=== PATIENT | male | born 1990 | race Caucasian/White ===

== ENCOUNTER 2020-12-21 10:51 | Outpatient (CLI) | payer SELFPAY ==
--- NOTE | 2020-12-21 | XR_ITS ---
WS: [id number] TOE LEFT TECHNIQUE: 3 views of the left great toe CLINICAL INFORMATION: LACERATION OF GREAT TOE, LEFT COMPARISON: None. FINDINGS: Comminuted fracture involving the second proximal phalanx with comminuted fracture fragments due to r ecent injury. Soft tissue edema. Normal first metatarsal. XR/XR toe LT min 2V [id number] IMPRESSION: Comminuted fracture involving the second proximal phalanx with comminuted fract ure fragments due to recent laceration
== END 2020-12-21 10:52 | disposition home or self-care (01) ==
LOC: RADOUTREAD 11:41
PROVIDERS: PCP Family Medicine; Visit Provider Physician Assistant
DX: S91.112A Laceration without foreign body of left great toe without damage to nail, initial encounter (principal); Z11.52 Encounter for screening for COVID-19; Z20.822 Contact with and (suspected) exposure to COVID-19; S92.912A Unspecified fracture of left toe(s), initial encounter for closed fracture; X58.XXXA Exposure to other specified factors, initial encounter
CPT/HCPCS: 87635

== ENCOUNTER 2020-12-22 10:57 | Day surgery (SDC) | payer SELFPAY ==
[2020-12-21 16:45] VITALS: BMI 33.7
[2020-12-22] MEDS: sodium chloride 0.9% 1,000 ML 30 ML IV (11:30)
--- NOTE | 2020-12-22 11:49 | P.ANESASSM_ITS ---
Pre-Anesthetic Assessment Pre-Anesthetic Assessment: Height/Weight: Height 1.78 m Weight 106.594 kg Preop Diagnosis: Open fracture left great toe with tendon rupture Proposed Procedure: Operation Date: 12/22/20 12:20 Proposed Procedures p 17726/46210Xbalz repair and extensor tendon repair left foot W29.3XXA S92.91 9B(Left) - Slava Marquez DPM Familial anesthetic complications: None Was Beta Chris taken within 24 hours: N/A Was Clonidine taken within 24 hours: N/A Last intake: Intake Last Liquid Date 12/21/20 Last Liquid Time 22:30 Last Solid Date 12/21/20 Last Solid Time 22:30 Social: Social History: No alcohol and No tobacco Exam: Pre-Anes Outpt Exam: alert, oriented x 3, clear to auscultation bilaterally and regular rate & rhythm Airway: Cervical ROM: WNL MP: 4 Dentition: Chipped Anesthetic Plan: ASA status: 1 Anesthesia: General Risk of > 500 ml blood loss (7ml/kg in children): No Data Anesthesia Cardiac Studies: No Data to Display
--- NOTE | 2020-12-22 12:06 | W.PM.OPSUD ---
Surgery/Procedure H&P Update DATE OF PROCEDURE: December 22, 2020 DATE H&P PERFORMED: 12/21/20 H&P UPDATE INFORMATION: I have reviewed H&P completed within last 30 days, I have examined patient prior to procedure, No changes to prior documentation and H&P is in [facility] EMR on date indicated PREOP DIAGNOSIS: Open fracture left great toe with tendon rupture PLANNED PROCEDURE: Operation Date: 12/22/20 12:20 Proposed Procedures p 15309/10266Pcfcc repair and extensor tendon repair left foot W29.3XXA S92.919B(Left) - Slava Marquez DPM
[2020-12-22] MEDS: lidocaine 1% INJ 20 mL INJECTION (12:24)
[2020-12-22 13:09] VITALS: BP 119/65; PULSE 78; RESP 16; TEMP 36.2; O2SAT 96
--- NOTE | 2020-12-22 13:13 | P.OP_ITS ---
Operative Report Date of procedure: December 22, 2020 Pre-op Diagnosis: Open fracture left great toe with tendon rupture Post-op diagnosis: same Post-op Findings: Same Procedure Done: Wound repair and extensor tendon repair left foot CPT code 46098 and 41697 Implants: 4-0 Vicryl, 4-0 nylon, 3-0 nylon Pathology: none sent Surgeon: Slava Marquez D.P.M. Marine Gear Keeper: INDY Anesthesia: MAC Estimated blood loss: Less than 10 mL Tourniquet time: 37 minutes IV fluids: None Urine output: None Complications: None Findings: Comminuted nondisplaced fracture of the proximal phalanx left great toe and completely severed extensor hallucis longus tendon. 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 Toe was flushed with saline, dressed with Betadine and he was placed on clindamycin and ciprofloxacin and also prescribed [place]. Presents n.p.o. since midnight in preparation for complex wound repair and extensor tendon repair. Risks include pain, bleeding, numbness, infection, tendon adhesions, tendon failure, lack of range of motion, lack of strength and power mobility of the left great toe. Need for further surgical intervention. Informed consent signed by patient and myself, initialed his left foot. All questions answered to patient satisfaction he wishes to proceed. No guarantees written, expressed or implied. He is accompanied by his mother. Procedure: Out sedation the patient was brought to the operating room and placed on the operating table in supine position. A timeout was performed. Anesthesia was then administered by the anesthesia service. Local anesthesia injected by myself consisting of 0.5 Marcaine plain and 1% lidocaine plain in a one-to-one mixture. Total of 20 cc and a left [place] block fashion. Well-padded pneumatic tourniquet applied to the left ankle. Left lower extremity was scrubbed, prepped and draped utilizing normal aseptic technique. Tourniquet was then inflated to 250 mmHg. Attention was directed to the left dorsal hallux where a full-thickness wound exposed to bone and some rough skin edges medially from a chainsaw. Extensor houses longus tendon was visualized to be fully severed however there is no retraction, proximal margin had a clean cut distal margin had some fraying of the tendon. Wound site irrigated with copious amounts of sterile saline solution there was some green vegetation pulled out no other grit or debris. Following irrigation the extensor tendon of the extensor houses longus tendon was reapproximated utilizing a augmentation of the back or approach utilizing nonabsorbable 3-0 nylon. Good end-to-end apposition was appreciated. The wound was then closed utilizing a layered closure utilizing 4-0 Vicryl suture subcutaneous tissue and tendon sheath and 4-0 nylon at skin. Incision was then dressed with Adaptic, sterile 4 x 4, Kerlix and Alan wrap. Tourniquet was deflated and a prompt hyperemic response was noted to all 5 digits of the left foot. Patient tolerated the procedure and anesthesia well and was transferred to the PACU with vital signs stable and vascular status intact. Following a period of postop monitoring he will be discharged home he is to continue with crutches and a cam boot to the left lower extremity and elevate while at rest. Continue clindamycin and ciprofloxacin and hydrocodone as needed for pain. Will follow-up next week.
[2020-12-22 13:15] VITALS: BP 129/70; PULSE 72; RESP 18; TEMP 36.2; O2SAT 95
[2020-12-22 13:20] VITALS: BP 123/78; PULSE 67; RESP 18; TEMP 36.1; O2SAT 97
[2020-12-22 13:51] VITALS: BP 135/73; PULSE 72; RESP 18; TEMP 36.1; O2SAT 96
--- NOTE | 2020-12-22 15:52 | ANE.PACU2 ---
Inpatient post-anesthesia follow up: Airway intact: Yes Vital signs: Temperature 97 F Pulse Rate 72 Respiratory Rate 18 Blood Pressure 135/73 Pulse Oximetry 96 Oxygen Delivery Me thod Room Air Oxygen Flow Rate Fraction of Inspir ed Oxygen Hydration adequate: Yes Nausea and vomiting: No Pain level: 2 Mental status: Baseline
== END 2020-12-22 14:10 | disposition home or self-care (01) ==
PROVIDERS: PCP Family Medicine; Visit Provider Podiatrist Foot & Ankle Surgery
PROC: (CPT 13132; principal; 2020-12-22 12:00)
DX: S92.402A Displaced unspecified fracture of left great toe, initial encounter for closed fracture (principal); S96.112A Strain of muscle and tendon of long extensor muscle of toe at ankle and foot level, left foot, initial encounter; W29.3XXA Contact with powered garden and outdoor hand tools and machinery, initial encounter
CPT/HCPCS: 13132; 28208; J0690; J2704; J3010; J3490; J7030

== ENCOUNTER 2021-01-01 08:58 | Outpatient (CLI) | payer SELFPAY ==
--- NOTE | 2021-01-01 09:02 | XR_ITS ---
WS: [id number] Left foot, 3 views, 01/01/2021 Clinical Data: foot pain Comparison: Left great toe, 12/21/2020. Findings: The comminuted fracture of the midportion of the left great toe proximal phalanx remains unchanged. The remainder the foot is unremarkable. XR/XR foot LT min 3V* [id number] Impression: Comminuted fracture involving the proximal phalanx of the left great toe unchtatyana tam.
== END 2021-01-01 08:59 | disposition home or self-care (01) ==
LOC: RAD 09:00
PROVIDERS: PCP Family Medicine; Visit Provider Podiatrist Foot & Ankle Surgery
DX: S92.912A Unspecified fracture of left toe(s), initial encounter for closed fracture (principal); X58.XXXA Exposure to other specified factors, initial encounter
CPT/HCPCS: 73630

== ENCOUNTER → 2021-01-07 13:47 | Outpatient (BNVA) | payer SELFPAY | PROVIDERS: PCP Family Medicine; Visit Provider Podiatrist Foot & Ankle Surgery | DX: S92.415B Nondisplaced fracture of proximal phalanx of left great toe, initial encounter for open fracture (principal); X58.XXXA Exposure to other specified factors, initial encounter | CPT/HCPCS: 73630 ==

== ENCOUNTER 2021-11-29 14:07 | Emergency (ER) | payer SELFPAY ==
[2021-11-29 14:10] VITALS: BP 154/51; PULSE 87; RESP 16; TEMP 36.4; O2SAT 96
--- NOTE | 2021-11-29 14:25 | XRR_ITS ---
PROCEDURE INFORMATION: Exam: XR Right Forearm Exam date and time: 11/29/2021 2:35 PM Age: 31 years old Clinical indication: Injury or trauma; Fall; Crushing; Arm, lower; Right TECHNIQUE: Imaging protocol: XR Right forearm. Views: 2 views. COMPARISON: No relevant prior studies available. FINDINGS: Bones/joints: Normal. Soft tissues: Normal. Other findings: Two views submitted. XR/XR forearm RT 2V [id number] IMPRESSION: No acute findings.
--- NOTE | 2021-11-29 14:25 | XRR_ITS ---
PROCEDURE INFORMATION: Exam: XR Right Hand Exam date and time: 11/29/2021 2:36 PM Age: 31 years old Clinical indication: Injury or trauma; Fall; Crushing; Hand; Right TECHNIQUE: Imaging protocol: XR Right hand. Views: 3 or more views. COMPARISON: CR ( EX, ) 11/29/2021 2:35 PM FINDINGS: Bones/joints: Lateral view of the digits is somewhat limited due to overlapping. No acute fracture dislocation. Well preserved joint spaces. Soft tissues: Normal. Other findings: Three views submitted. XR/XR hand RT min 3V* [id number] IMPRESSION: No acute findings.
--- NOTE | 2021-11-29 14:25 | XRR_ITS ---
PROCEDURE INFORMATION: Exam: XR Right Wrist Exam date and time: 11/29/2021 2:37 PM Age: 31 years old Clinical indication: Injury or trauma; Fall; Crushing; Wrist; Right TECHNIQUE: Imaging protocol: XR Right wrist. Views: 1 or 2 views. COMPARISON: CR (UP EX, ) 11/29/2021 2:36 PM FINDINGS: Bones/joints: Normal. Soft tissues: Normal. Other findings: Three views submitted. XR/XR wrist RT 2V [id number] IMPRESSION: No acute findings. If there is a clinical concern for scaphoid fracture, followup/additional assessment may also be considered.
--- NOTE | 2021-11-29 15:03 | W.ED.UPPEXIN ---
HPI - Extremity Injury (Upper) General: Chief Complaint: Extremity Injury, Lower Stated Complaint: Right hand injury Time Seen by Provider: 11/29/21 14:42 Source: patient Mode of arrival: ambulatory Limitations: no limitations History of Present Illness: Patient is a 31-year-old male who presents to ED today for evaluation following a right upper extremity injury. Patient tells me prior to arrival he was trying to load a canoe with a winch and states somehow the arm got tangled up. He complains of some mild pain and abrasions to his right forearm but his main concern is his hand that is painful and swollen. complaint: injury to: right, forearm, wrist and hand Onset (ago): hour(s) Other Extremity Injury: Right: hand, wrist and forearm Other injuries: none Place: work and outdoors Severity: moderate Relieving factors: immobilization Exacerbating factors: movement of extremity Context: injury Associated symptoms: Reports no associated symptoms; Denies neck pain or weakness in extremities Review of Systems Card: Denies: chest pain Resp: Denies: dyspnea GI: Denies: abdominal pain Musc: Reports: extremity pain (R hand) and extremity swelling (R hand); Denies: neck pain, back pain, joint redness or joint warmth Neuro: Denies: numbness in extremities, weakness in extremities or sensory changes Physical Exam Const: COMMON NORMALS: no acute distress, patient oriented x3, no limitations and alert ORIENTATION/CONSCIOUSNESS: Yes awake, Yes oriented to person, Yes oriented to place and Yes oriented to time Neck/C-Spine: COMMON NORMALS: full ROM GENERAL: Yes normal visual inspection CERVICAL SPINE: No pain with cervical ROM, No Cervical spine tenderness and No Paracervical muscle tenderness Resp: COMMON NORMALS: normal respiratory effort and clear to auscultation bilaterally AUSCULTATION: clear to auscultation bilaterally Extremity: COMMON NORMALS: capillary refill normal GENERAL: Yes normal exam except as noted RIGHT UPPER EXTREMITY: Yes lower arm, Yes wrist and Yes hand & digits OTHER: pt has some very superficial abrasions to volar R forearm; he complains of soreness to the forearm but no obvious swelling is noted. He has full range of motion of his elbow and wrist joints; patient's main concern is swelling to the radial side of his hand and thumb; he has restricted movement here secondary to swelling; patient has normal sensation; he has normal cap refill to the thumb; sensation intact; no skin lacerations/avulsions/abrasions noted Neuro: COMMON NORMALS: patient oriented x3, moves all extremities, no focal motor deficits and no sensory deficits noted SENSORIUM/ORIENTATION: Yes alert, Yes oriented to person, Yes oriented to place and Yes oriented to time Course Vital Signs: Vital signs: Vital Signs Temperature 97.5 F L 11/29/21 14:10 Pulse Rate 87 11/29/21 14:10 Respiratory Rate 16 11/29/21 14:10 Blood Pressure 154/51 11/29/21 14:10 Pulse Oximetry 96 11/29/21 14:10 MDM - Extremity Injury (Upper) Medical Decision Making XRs negative for fracture/dislocation. Patient states he isn't sure exact TERESA or how his hand was injured in the winch (i.e crush, hyperextention, etc). He does have fairly significant swelling to this area. We will go ahead and place in a thumb spica splint and have him follow-up with orthopedics. DDx includes ulnar/radial collateral injuries or occult scaphoid fracture. Lab Data Radiology Impressions Forearm X-Ray 11/29/21 14:25 IMPRESSION: No acute findings. Hand X-Ray 11/29/21 14:25 IMPRESSION: No acute findings. Wrist X-Ray 11/29/21 14:25 IMPRESSION: No acute findings. If there is a clinical concern for scaphoid fracture, followup/additional assessment may also be considered. Discharge Plan Discharge Patient Disposition: Home Clinical Impression: Injury of right hand Qualifiers: Encounter type: initial encounter Qualified Code(s): S69.91XA - Unspecified injury of right wrist, hand and finger(s), initial encounter Condition: Stable Prescriptions: New ibuprofen 800 mg tablet 800 mg PO Q8H PRN (Reason: pain) Qty: 20 0RF hydrocodone-acetaminophen 5-325 mg tablet 1 tab PO Q6H PRN (Reason: pain) Qty: 14 0RF No Action (DME) CAM Boot to the left See Rx Instructions .Route .MEDSUPPLY Qty: 1 0RF Rx Instructions: As directed Discharge Orders: Discharge ED (Routine); Ordered 11/29/21 Ordered By: Lana Salazar Referrals: Grupo Julio MD [Primary Care Provider] - Activity Restrictions/Additional Instructions: As we discussed please follow-up with orthopedics for further evaluation. Case management should contact you shortly to set you up with this follow-up appointment. You need to return to the emergency department for worsening or uncontrollable pain, swelling, any color or temperature changes to your digits/hand, drainage from any of the abrasions/wounds, numbness/tingling/loss of sensation, any other concerns you may have. Coding Level of Care Code ED [employer] for Jaya Felton
--- NOTE | 2021-12-01 12:10 | DCPLANNER ---
Addendum entered by Yolanda Macedo 12/10/21 06:28: manager r d was told by ortho that patient declined apt at this time. states it is moving well and swelling has gone down Original Note: manager r d had message to schedule a follow up appointment for patient with ortho. manager r d sent patients information to the front office staff at ortho. Patients information will be printed and reviewed. Clinic will call patient with appointment information.
== END 2021-11-29 16:43 | disposition home or self-care (01) ==
PROVIDERS: Emergency Provider Physician Assistant; PCP Family Medicine
DX: S69.91XA Unspecified injury of right wrist, hand and finger(s), initial encounter (principal); X58.XXXA Exposure to other specified factors, initial encounter
CPT/HCPCS: 73090; 73100; 73130; 99283